=== PATIENT | male | born 1940 | race Caucasian/White ===

== ENCOUNTER 2016-12-23 15:05 | Emergency (ER) | payer MEDICARE, BC ==
[~2016-12-23] VITALS: Ht 170.2 cm; Wt 83.2 kg
[~2016-12-23 15:05] MED LIST: CALTTAB2 PO; CARB200 PO; CARV12.52 PO; CENTTAB9 PO; COZA50TA PO; HIGHTAB3 PO; ISOS5 PO; OMEP20CA5 PO; PERC5TAB12 PO; ROSU40 PO
[2016-12-23 15:09] VITALS: BP 129/81; PULSE 92; RESP 20; TEMP 98; O2SAT 95
[2016-12-23] MEDS ORDERED: FOLI400T PO (15:47)
[2016-12-23] MEDS ORDERED: FERR200T PO (15:47)
[2016-12-23] MEDS ORDERED: TREX15TA PO (15:47)
[2016-12-23] MEDS ORDERED: ROSU1TAB10 PO (15:47)
[2016-12-23] MEDS ORDERED: OMEP20TA PO (15:47)
[2016-12-23] MEDS ORDERED: MULT-210 PO (15:47)
[2016-12-23] MEDS ORDERED: CARV6.252 PO (15:47)
[2016-12-23] MEDS ORDERED: CALC1TAB42 PO (15:47)
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
== END 2016-12-23 17:18 | disposition home or self-care (01) ==
LOC: PHEFT 15:05
DX: S16.1XXA Strain of muscle, fascia and tendon at neck level, initial encounter (principal); S09.90XA Unspecified injury of head, initial encounter; S50.12XA Contusion of left forearm, initial encounter; M79.662 Pain in left lower leg; I10 Essential (primary) hypertension; V28.0XXA Motorcycle driver injured in noncollision transport accident in nontraffic accident, initial encounter; Y92.488 Other paved roadways as the place of occurrence of the external cause; Y93.89 Activity, other specified
CPT/HCPCS: 70450; 72125; 73090; 73590; 99284; L0150

== ENCOUNTER → 2017-04-05 | Outpatient (CLI) | payer MEDICARE, BC ==
[~2017-04-05] MED LIST changes: +CALC1TAB42 PO; -CALTTAB2 PO; -CARB200 PO; -CARV12.52 PO; +CARV6.252 PO; -CENTTAB9 PO; -COZA50TA PO; +FERR200T PO; +FOLI400T PO; -HIGHTAB3 PO; -ISOS5 PO; +MULT-210 PO; -OMEP20CA5 PO; +OMEP20TA PO; -PERC5TAB12 PO; +ROSU1TAB10 PO; -ROSU40 PO; +TREX15TA PO
--- NOTE | 2017-04-11 10:43 | RSPPFT ---
DATE OF PROCEDURE: 04/05/17 COMMENTS: Spirometry shows FVC of 3.3 at 107% of predicted, FEV1 of 2.3 at 96%, FEV1/FVC ratio is normal. Flow is decreased at FEF 25, FEF 50, FEF 75 and FEF 25-75. There is no response after bronchodilator treatment. Lung volumes show residual volume is normal. TLC is normal. Diffusion capacity is mildly decreased. Flow volume loops indicate terminal airways obstruction. IMPRESSION: 1. Mild small airways obstructive lung disease. 2. No response after bronchodilator treatment. 3. Normal lung volumes. 4. Mild decrease in diffusion capacity.
== END ==
LOC: PHRSP 10:45
PROVIDERS: ATTEND Specialist
DX: R06.00 Dyspnea, unspecified (principal)
CPT/HCPCS: 94060; 94726; 94729

== ENCOUNTER 2017-09-25 11:11 | Emergency (ER) | payer MEDICARE, BC ==
[~2017-09-25] VITALS: Ht 167.6 cm; Wt 85.0 kg
[~2017-09-25 11:11] MED LIST changes: -OMEP20TA PO; +OMEP20TA93 PO
[2017-09-25 11:14] VITALS: BP 186/84; PULSE 104; RESP 18; TEMP 98.9; O2SAT 95
[2017-09-25] MEDS ORDERED: LEVO25TA4 PO (11:26)
[2017-09-25] MEDS ORDERED: guaiFENesin/CODEINE SYRUP 200 MG/20 MG/10 ML CUP PO ONE (11:45)
[2017-09-25] MEDS: RESP: ALBUTEROL 2.5 MG/IPRATROPIUM 0.5 MG NEB (SCH) INH (11:46)
--- NOTE | 2017-09-25 11:48 | PD ---
HPI Chief Complaint: Cold / Flu Symptoms Time Seen by Provider: 11:28 Travel History International Travel<30 days: No Contact w/Intl Traveler<30days: No Traveled to known affect area: No History of Present Illness HPI 77yo F with PMH of CAD s/p CABG, RA, presents to the ED with c/o cough and nasal congestion for 4 days. Said he has no fever but lots of sweating. Also has some sob. Denies any chest pain, n/v, abdominal pain, focal weakness or numbness. 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 He was given albuterol pump which did seem to help. As per our record, he had pulmonary function test 04/2017 that showed mild small airway obstructive lung disease. PFSH Past Medical History Arthritis: Yes (ra) Autoimmune Disease: Yes (RA) Cardiac Catheterization: Yes (3 weeks) Cardiovascular Problems: Yes ([place]) High Cholesterol: Yes Chest Pain: Yes COPD: Yes Coronary Artery Disease: Yes Diminished Hearing: No GERD: Yes Gout: Yes Genitourinary: No Hypertension: Yes Neurologic: No Respiratory: Yes (hx pneumonia x 3) Immunizations Current: Yes Myocardial Infarction: Yes (2008) Tetanus Vaccination: < 5 Years Influenza Vaccination: Yes Past Surgical History Abdominal Surgery: Yes Appendectomy: Yes Cardiac Surgery: No Coronary Stent: Yes (x1 stent) Ear Surgery: No Endocrine Surgery: No Eye Surgery: No Genitourinary Surgery: No Gynecologic Surgery: No Joint Replacement: Yes (right hip) Neurologic Surgery: No Oral Surgery: No Thoracic Surgery: No Other Surgery: Yes (lamiectomy L4-L5, right wrist, left foot buionectomy) Social History Alcohol Use: Yes (OCC) Tobacco Use: No (QUIT) Substance Use: No Allergies-Medications (Allergen,Severity, Reaction): Coded Allergies: No Known Allergies (Verified Adverse Reaction, Unknown, 09/25/17) Reported Meds & Prescriptions Reported Meds & Active Scripts Active Codeine Sulfate 15 Mg Tab 15 Mg PO Q6H PRN 5 Days Prednisone 20 Mg Tab 40 Mg PO DAILY 5 Days Take 40 mg (2 tablets) daily for 5 days Reported Levothyroxine (Levothyroxine Sodium) 25 Mcg Tab 25 Mcg PO DAILY Trexall (Methotrexate) 15 Mg Tab 25 Mg PO Q7D Calcium 500+D (Calcium Carbonate-Cholecalciferol) 500-200 Mg-Unit Tab 1 Tab PO DAILY Therapeutic M (Multivit with Calcium,Iron,Min) 1 Each Tablet 1 Tab PO DAILY Rosuvastatin (Rosuvastatin Calcium) 40 Mg Tab 40 Mg PO DAILY Omeprazole 20 Mg Tab 20 Mg PO DAILY Folic Acid 400 Mcg Tab 300 Mcg PO DAILY Feosol (Ferrous Sulfate) 200 Mg Tab 200 Mg PO BIDPC Carvedilol 6.25 Mg Tab 6.25 Mg PO BID Review of Systems Except as stated in HPI: all other systems reviewed are Neg Physical Exam Narrative GENERAL: 77yo M in mild distress. SKIN: Focused skin assessment warm/dry. HEAD: Atraumatic. Normocephalic. EYES: Pupils equal and round. No scleral icterus. No injection or drainage. ENT: No nasal bleeding or discharge. Mucous membranes pink and moist. NECK: Trachea midline. No JVD. CARDIOVASCULAR: Regular rate and rhythm. No murmur appreciated. RESPIRATORY: No accessory muscle use. Clear to auscultation. Breath sounds equal bilaterally. GASTROINTESTINAL: Abdomen soft, non-tender, nondistended. MUSCULOSKELETAL: No obvious deformities. No clubbing. No cyanosis. No edema. NEUROLOGICAL: Awake and alert. No obvious cranial nerve deficits. Motor grossly within normal limits. Normal speech. PSYCHIATRIC: Appropriate mood and affect; insight and judgment normal. Data Data Last Documented VS Vital Signs Date Time Temp Pulse Resp B/P (MAP) Pulse Ox O2 Delivery O2 Flow Rate FiO2 09/25/17 13:36 09/25/17 13:03 98 18 95 Room Air 09/25/17 11:14 98.9 Orders Orders Electrocardiogram (09/25/17 ) Complete Blood Count With Diff (09/25/17 11:35) Basic Metabolic Panel (Bmp) (09/25/17 11:35) Troponin I (09/25/17 11:35) Influenzae A/B Antigen (09/25/17 11:35) Chest, Pa & Lat (09/25/17 ) Guaifen-Cod 200-20 Mg/10ml Liq (Robituss (09/25/17 11:45) Albuterol-Ipratropium Neb (Duoneb Neb) (09/25/17 11:45) Prednisone (Deltasone) (09/25/17 13:15) Ed Discharge Order (09/25/17 13:08) Labs Laboratory Tests Test 3/25/18 12:00 White Blood Count 12.0 TH/MM3 Red Blood Count 3.86 MIL/MM3 Hemoglobin 13.0 GM/DL Hematocrit 39.1 % Mean Corpuscular Volume 101.3 FL Mean Corpuscular Hemoglobin 33.7 PG Mean Corpuscular Hemoglobin Concent 33.3 % Red Cell Distribution Width 14.7 % Platelet Count 303 TH/MM3 Mean Platelet Volume 6.9 FL Neutrophils (%) (Auto) 82.7 % Lymphocytes (%) (Auto) 4.6 % Monocytes (%) (Auto) 8.4 % Eosinophils (%) (Auto) 1.6 % Basophils (%) (Auto) 2.7 % Neutrophils # (Auto) 9.9 TH/MM3 Lymphocytes # (Auto) 0.6 TH/MM3 Monocytes # (Auto) 1.0 TH/MM3 Eosinophils # (Auto) 0.2 TH/MM3 Basophils # (Auto) 0.3 TH/MM3 CBC Comment AUTO DIFF Differential Comment AUTO DIFF CONFIRMED Blood Urea Nitrogen 22 MG/DL Creatinine 1.10 MG/DL Random Glucose 86 MG/DL Calcium Level 8.2 MG/DL Sodium Level 139 MEQ/L Potassium Level 4.0 MEQ/L Chloride Level 105 MEQ/L Carbon Dioxide Level 25.0 MEQ/L Anion Gap 9 MEQ/L Estimat Glomerular Filtration Rate 65 ML/MIN Troponin I LESS THAN 0.02 NG/ML MDM Medical Decision Making Medical Screen Exam Complete: Yes Emergency Medical Condition: Yes Interpretation(s) EKG: NSR 95bpm. LAD. RBBB. Differential Diagnosis Bronchitis vs. pneumonia vs. influenza vs. ACS Narrative Course 77yo M with cold like symptoms. Pt has significant cardiac history and has some sob and diaphoresis so will do EKG and cardiac enzyme. Pt has no chest pain. Also has positive reaction to albuterol so will try some nebulizer treatment as well as robitussin with codeine. Labs reviewed, mild leukocytosis at 12,000. Pt said he is on medrol dose heide and does not know what dose he takes. Troponin negative. BUN mildly elevated at 22. Influenza negative. CXR showed no acute disease. HR is now 98bpm. Pt given robitussin and duonebs. Reevaluatd at bedside and said he feels better. Pt is not sob but just wants me to get rid of his cough. He is well appearing and saturating at 95% on RA. Return precautions given. Pt already have a new albuterol pump. Diagnosis Primary Impression: Bronchitis Patient Instructions: General Instructions Departure Forms: Tests/Procedures Additional Instructions: Please follow up with your primary care physician in 2-3 days. Please stop taking your medrol dose heide for now and take the prednisone for 5 days. Return to the ED if symptoms worsen. Med/Other Pt SpecificInfo: Prescription(s) given Scripts Guaifenesin-Codeine Liq (Guaifenesin-Codeine Liq) 100-10 Mg/5 Ml Soln 10 ML PO Q6H Y for COUGH for 5 Days, #1 BOTTLE 0 Refills Prov: Tila Avelar DO 09/25/17 Prednisone (Prednisone) 20 Mg Tab 40 MG PO DAILY for 5 Days, #10 TAB 0 Refills Take 40 mg (2 tablets) daily for 5 days Prov: Tila Avelar DO 09/25/17 Disposition: 01 DISCHARGE HOME Condition: Stable Tila Avelar DO Sep 25, 2017 11:48
[2017-09-25 12:04] LABS: AUTOMATED NEUTROPHIL # 9.9 TH/MM3 (1.8-7.7); BASOPHIL # 0.3 TH/MM3 (0-0.2); BASOPHIL % 2.7 % (0.0-2.0); EOSINOPHIL # 0.2 TH/MM3 (0-0.4); EOSINOPHIL % 1.6 % (0.0-4.0); HEMATOCRIT 39.1 % (39.0-51.0); LYMPH % 4.6 % (9.0-44.0); LYMPHOCYTE # 0.6 TH/MM3 (1.0-4.8); MEAN CELL VOLUME 101.3 FL (80.0-100.0); MEAN CORPUSCULAR HEMOGLOBIN 33.7 PG (27.0-34.0); MEAN CORPUSCULAR HGB CONC 33.3 % (32.0-36.0); MEAN PLATELET VOLUME 6.9 FL (7.0-11.0); MONO % 8.4 % (0.0-8.0); NEUT % 82.7 % (16.0-70.0); PLATELET COUNT 303 TH/MM3 (150-450); RED BLOOD COUNT 3.86 MIL/MM3 (4.50-5.90); RED CELL DISTRIBUTION WIDTH 14.7 % (11.6-17.2)
[2017-09-25 12:17] LABS: CHLORIDE 105 MEQ/L (98-107); SODIUM (NA) 139 MEQ/L (136-145)
[2017-09-25 12:19] LABS: CALCIUM 8.2 MG/DL (8.5-10.1)
[2017-09-25 12:20] LABS: BLOOD UREA NITROGEN 22 MG/DL (7-18); GLUCOSE,RANDOM 86 MG/DL (74-106)
[2017-09-25 12:23] LABS: GLOMERULAR FILTRATION RATE 65 ML/MIN (>89)
[2017-09-25 12:28] LABS: TROPONIN I LESS THAN 0.02 NG/ML (0.02-0.05)
--- NOTE | 2017-09-25 12:47 | RADRPT ---
EXAM DATE/TIME: 09/25/2017 12:17 [facility] COMPARISON: CHEST PA & LAT, March 26, 2015, 11:43. INDICATIONS : Cough. Congestion. MEDICAL HISTORY : Cardiovascular disease. SURGICAL HISTORY : CABG. Craniotomy. ENCOUNTER: Initial ACUITY: 3 days PAIN SCORE: 5/10 LOCATION: Bilateral chest FINDINGS: PA and lateral views of the chest demonstrate the lungs to be symmetrically aerated without evidence of mass, infiltrate or effusion. The cardiomediastinal contours are unremarkable. Medium sternotomy wires are noted status post cardiac surgery. Osseous structures are intact. CONCLUSION: No acute disease. Roman Miranda MD on September 25, 2017 at 12:44 Board Certified Radiologist. This report was verified electronically.
[2017-09-25 13:03] VITALS: BP 136/76; PULSE 98; RESP 18; O2SAT 95
[2017-09-25] MEDS ORDERED: PRED20 PO (13:05)
[2017-09-25] MEDS ORDERED: CODE15 PO (13:05)
[2017-09-25] MEDS ORDERED: predniSONE 50 MG TAB PO ONE (13:15)
[2017-09-25] MEDS ORDERED: GUAI100S5 PO (15:52)
--- NOTE | 2017-09-27 00:33 | EKG ---
Date Performed: 09/25/2017 Time Performed: 11:42:20 PTAGE: 77 years EKG: Sinus rhythm RIGHT BUNDLE BRANCH BLOCK INFERIOR MYOCARDIAL INFARCTION ABNORMAL ECG PREVIOUS TRACING : 03/26/2015 12.31 DOCTOR: Riley Wilkerson Interpretating Date/Time 09/27/2017 00:19:27
== END 2017-09-25 13:37 | disposition home or self-care (01) ==
LOC: PHEFT 11:11
DX: J40 Bronchitis, not specified as acute or chronic (principal); D72.829 Elevated white blood cell count, unspecified; I45.10 Unspecified right bundle-branch block; I25.2 Old myocardial infarction; R94.31 Abnormal electrocardiogram [ECG] [EKG]; M06.9 Rheumatoid arthritis, unspecified; I25.10 Atherosclerotic heart disease of native coronary artery without angina pectoris; M10.9 Gout, unspecified; I10 Essential (primary) hypertension
CPT/HCPCS: 71046; 80048; 84484; 85025; 87804; 93005; 94640; 94664; 99285; J7512

== ENCOUNTER 2018-02-09 05:30 | Observation (INO) ==
[2018-02-09] MEDS ORDERED: Metoprolol Tartrate 25 MG Tablet PO SCH (05:45)
[2018-02-09] MEDS ORDERED: Chlorhexidine Gluconate 2% 1 Pack (2 Cloths) TOPICAL SCH (05:45)
[2018-02-09] MEDS ORDERED: Sodium Chlor 0.9% Inj 500 ML IV.SIG SCH (06:00)
[2018-02-09] MEDS ORDERED: ceFAZolin 2 GM Premix Inj 2 GM/50 ML PIGGYBACK IV.SIG SCH (06:00)
[2018-02-09] MEDS ORDERED: Vancomycin Inj 1 GM/200 ML PIGGYBACK IV.SIG SCH (06:00)
[2018-02-09] MEDS ORDERED: Chlorhexidine 4% Topical 120 APPLIC/120 ML Bottle TOPICAL SCH (06:00)
[2018-02-09] MEDS ORDERED: Ketamine Inj 50 MG/5 ML Syringe IV.PUSH ONE (07:44)
[2018-02-09] MEDS ORDERED: Propofol Inj 500 MG/50 ML Vial ONE ×2 (07:44→10:26)
[2018-02-09] MEDS ORDERED: Dexmedetomidine Inj 200 MCG/2 ML Vial ONE (08:07)
[2018-02-09] MEDS ORDERED: Ketamine Inj 500 MG/10 ML Vial ONE (08:21)
[2018-02-09] MEDS: Bupivacaine/Epinephrine 0.5% Inj 50 ML Vial ONE (10:50)
[2018-02-09] MEDS ORDERED: Lidocaine PF 1% Inj 5 ML Syringe INFILTRATN ONE (12:00)
[2018-02-09] MEDS ORDERED: Phenylephrine/NS 1000 MCG/10ML Syringe IV.PUSH ONE (12:00)
[2018-02-09] MEDS ORDERED: Succinylcholine Inj 100 MG/5 ML Syringe IV.PUSH ONE (12:00)
[2018-02-09] MEDS ORDERED: Sodium Chlor 0.9% Inj 250 ML IV.SIG ONE (12:00)
[2018-02-09] MEDS ORDERED: Zolpidem Tartrate 5 MG Tablet PO PRN (15:00)
[2018-02-09] MEDS ORDERED: Post-op Orders (for Pharmacy) OTHER STA (15:00)
[2018-02-09] MEDS ORDERED: Bisacodyl 10 MG Supp RECTAL PRN (15:00)
[2018-02-09] MEDS ORDERED: Morphine Inj 4 MG/ML Vial IV.PUSH PRN (15:00)
--- NOTE | 2018-02-09 15:30 | MP ---
cc: John Valdovinos MD,Annette Echeverria,Arnold Zhao MD DATE OF OPERATION: 02/09/2018 DATE OF PROCEDURE: 02/09/2018 PREOPERATIVE DIAGNOSES: 1. C3-4 osteophyte disk complex. 2. C4-5 osteophyte disk complex, spondylolisthesis, spinal instability, moderate spinal stenosis, spinal cord compression. 3. C5-C6, moderate left-sided, herniated nucleus pulposus, osteophyte disk complex, moderately severe spinal stenosis, spinal cord compression. 4. Cervical spine degenerative osteoarthritis. 5. History of rheumatoid arthritis. 6. Cervical myelopathy, bilateral cervical radiculitis with bilateral upper extremity weakness. POSTOPERATIVE DIAGNOSES: 1. C3-4 osteophyte disk complex. 2. C4-5 osteophyte disk complex, spondylolisthesis, spinal instability, moderate spinal stenosis, spinal cord compression. 3. C5-C6, moderate left-sided, herniated nucleus pulposus, osteophyte disk complex, moderately severe spinal stenosis, spinal cord compression. 4. Cervical spine degenerative osteoarthritis. 5. History of rheumatoid arthritis. 6. Cervical myelopathy, bilateral cervical radiculitis with bilateral upper extremity weakness. PROCEDURE PERFORMED: C3-C4, C4-C5, C5-6 anterior interbody fusion; C3-4, C4-5, C5-C6 Spinet anterior cervical cage; C3-C6 Biomet Rauscher anterior spinal instrumentation. SURGEON: Ella Valdovinos MD IMPLEMENTATION CONSULTANT: Susana Britt PA-C. ESTIMATED BLOOD LOSS: 1000 mL for the entire case. DRAINS: One. SPECIMENS: None. COMPLICATIONS: None. PLAN OF ACTIVITY: As per orders. PROCEDURE: Dr. Duarte Valdovinos and myself were the co-surgeons. Dr. Duarte Valdovinos performed the decompression portion of the procedure. He performed a C3-4, C4-5 and C5-6 anterior cervical diskectomy, anterior decompression foraminotomies using operative microscope. He also performed a right anterior iliac crest bone grafting. I was not present for his portion of the procedure. My plastic surgery assistant Susana Britt PA-C, was present for my portion of the surgical case. She was medically necessary for the entire case because of the complexity of case and to facilitate the performance of the procedure. The METAPHYSICIST at the back table was not of the skill set for this case to manipulate the instruments, e.g. multiple different soft tractors, trial implants and the permanent implants. The endplates at C5-C6 were prepared for fusion. The patient was found to have significant generalized oozing from the foramen and also from the soft tissues throughout the entire surgical procedure. The endplates were removed using angled curets and burs. A 6, 10 x 12 ACC cage was placed in the space in satisfactory manner. Anterior iliac crest bone grafting was used under fluoroscopic guidance for interbody fusion. The endplates at C4-C5 were prepared for fusion, hyaline cartilage endplates removed using angled curettes and burs. A 6, 10 x 12 ACC cage was placed in this space. Anterior iliac crest bone graft was used under fluoroscopic guidance for interbody fusion. The C3-4 hyaline cartilage endplate were removed using angled curettes and burs. A 6, 10 x 12 ACC cage was placed in the interspace in satisfactory manner: Fluoroscopic guidance was used for anterior iliac crest interbody fusion. Long anterior osteophytes were removed using burs and rongeurs. A mm 63 mm length plate was used for anterior spinal instrumentation. Two small tack screws were used to maintain the plate in satisfactory position. This was checked under fluoroscopy, AP and lateral plane, which was found to be in satisfactory position. Two screws were used in the vertebral body of C3, C4, C5, and C6. Each of the screws were 14 mm length screws, 4.0 mm and outer diameter screws fixed angle screws. Each screw head was appropriately locked to the plate. The wound was irrigated with copious amounts of sterile saline antibiotic solution. Surgiflo was used for hemostasis. The wound was irrigated with copious amounts of sterile antibiotic solution. The wound itself were dry. The wound was closed in a routine layers. It was closed over a 10-[place] drain in multiple layers using 3-0 Vicryl and the skin was approximate with running subcuticular 4-0 Vicryl and sterile dressing apply. Dermabond was placed over the skin incisions. The patient was placed supine, placed in cervical collar. The patient tolerated the procedure well and left the operating room in stable and satisfactory condition. MD CHUCKY Augustin/JUAN , 02:54 PM , 03:09 PM
[2018-02-09 15:33] LABS: Hematocrit 31.8 % (39.0-51.0); Mean Corpuscular HGB Conc 34.7 % (32.0-36.0); Mean Corpuscular Hemoglobin 34.3 pg (27.0-34.0); Mean Corpuscular Volume 98.8 fL (80.0-100.0); Mean Platelet Volume 7.2 fL (7.0-11.0); Platelet Count 197 th/mm3 (150-450); Red Blood Count 3.22 mil/mm3 (4.50-5.90); Red Cell Distribution Width 13.1 % (11.6-17.2); White Blood Count 7.7 th/mm3 (4.0-11.0)
--- NOTE | 2018-02-09 15:48 | XR ---
EXAM DATE: 02/09/2018 3:35 PM EDT AGE/SEX: 77 years / Male INDICATIONS: C3-4, C4-5, C5-6 ACDF. CLINICAL DATA: This is the patient's initial encounter. Patient reports that signs and symptoms have been present for 1 day and indicates a pain score of Nonresponsive. MEDICAL/SURGICAL HISTORY: . Cardiovascular disease. CABG. Craniotomy. COMPARISON: No prior exams available for comparison. FINDINGS: Anterior and lateral views obtained in the operating room shows findings of cervical discectomy and f usion procedure with anterior and interbody instrumentation from C3 to C6. Alignment is within normal limits. No acute complication demonstrated. CONCLUSION: Expected intraoperative radiographic appearance of C3-C6 discectomy and fusion procedure as above. Electronically signed by: Leonides Charles MD 02/09/2018 3:47 PM EDT
[2018-02-09 15:54] LABS: Calcium 7.6 mg/dL (8.5-10.1); Carbon Dioxide 25.6 meq/L (21.0-32.0); Potassium 4.2 meq/L (3.5-5.1)
--- NOTE | 2018-02-09 17:55 | P.CON ---
History of Present Illness Consult date: 02/09/18 Requesting Physician: John Valdovinos Reason for Consult: Medical evaluation Primary Care Provider: UNKNOWN Family Provider: Physician [facility] Chief Complaint: Patient admitted for elective neck surgery History of Present Illness: Patient is a very pleasant 74-year-old male with multiple medical problems namely hypertension, rheumatoid arthritis, GERD, hyperlipidemia who has been complaining of bilateral paresthesias for the past few months worsening over time. Patient underwent workup with cervical disc disease. Patient was admitted today electively and underwent ACDF of the neck C3-C4, C4-C5, C5-C6 with DAMI drain. Patient has an estimated blood loss of 1 L. Hemoglobin was 11. Postop blood pressure. Patient received 3 L fluid resuscitation and was started transiently vasopressors Lamberto-Synephrine Synephrine. Patient currently on maintenance IV fluids of 80 cc an hour LR. [facility]ist consulted for medical evaluation. Patient currently seen in PACU. Awake alert oriented 3. Arterial line in place with blood pressures 100-110/75 heart rate regular. Review of Systems Patient states that he is up ambulatory independently Denies any paroxysmal nocturnal dyspnea or orthopnea. Occasional reflux symptoms Denies any melena or hematochezia Denies any urinary symptoms No leg swelling. Positive history of joint pains related to rheumatoid arthritis. Per patient well-controlled -Patient just completed Medrol Dosepak for rheumatoid flare about 2 weeks ago. [facility] - History History Provided By: Patient - Medical History Medical History: Medical History (Last Updated 01/31/18 @ 10:50 by Suzanne Ramirez RN) Anemia Back pain Head injury High cholesterol Hx deployment Hypertension Hypothyroidism Neck pain Numbness and tingling in both hands Rheumatoid arthritis Spinal stenosis in cervical region - Surgical History Surgical History: Surgical History (Last Updated 01/31/18 @ 10:44 by Suzanne Ramirez RN) History of aortic valve replacement History of appendectomy History of brain surgery History of coronary artery bypass graft History of lumbar laminectomy History of repair of rotator cuff History of total right hip arthroplasty Status post left foot surgery - Tobacco History Second Hand Smoke Exposure: No Tobacco Use In Past 30 Days: No Smoking Status: Former smoker Tobacco Type: Cigarettes - Alcohol History How Often Do You Have a Drink Containing Alcohol: Never - Substance Use History Substance History: No History of Abuse - Travel History Recent Travel in the [facility] Within the Last 8 Weeks: No Recent Travel Out of the Country Within the Last 8 Weeks: No Medications and Allergies Active Medications: Active Medications Hydrocodone Bitart/Acetaminophen ([place] 7.5/325) 1 tab PO Q4H PRN PRN Reason: PAIN LESS THAN 5 ON SCALE Hydrocodone Bitart/Acetaminophen ([place] 7.5/325) 2 tab PO Q6H PRN PRN Reason: PAIN SCALE 5 TO 10 Al Hydroxide/Mg Hydroxide (Milk Of Magnesia Liq) 30 ml PO BID PRN PRN Reason: Mild Constipation Aspirin (Ecotrin) 81 mg PO DAILY [facility] Bisacodyl (Dulcolax Supp) 10 mg RECTAL DAILY PRN PRN Reason: SEVERE CONSITIPATION Carvedilol (Coreg) 6.25 mg PO BID [facility] Chlorhexidine Gluconate (Chlorhexidine 2% Cloth) 3 pack TOPICAL WHEEL PRESSER [facility] Stop: 02/12/18 05:46 Last Admin: 02/09/18 05:45 Dose: 3 pack Chlorhexidine Gluconate (Hibiclens 4% Topical) 1 applicatio TOPICAL ONCE [facility] Stop: 02/13/18 05:59 Ferrous Sulfate (Ferosul) 325 mg PO BID [facility] Lactated Ringer's (Lr 1000 Ml Inj) 1,000 mls @ 30 mls/hr IV.SIG .Q24H [facility] Stop: 02/12/18 05:46 Last Infusion: 02/09/18 15:53 Dose: 30 mls/hr Sodium Chloride (Ns Inj) 500 mls @ 30 mls/hr IV.SIG .Q10H [facility] Stop: 02/12/18 05:46 Cefazolin Sodium/Dextrose (Ancef 2 Gm Premix Inj) 2 gm in 50 mls @ 100 mls/hr IV.SIG WHEEL PRESSER [facility] Stop: 02/13/18 05:59 Last Infusion: 02/09/18 12:00 Dose: Infused Vancomycin/Sodium Chloride (Vancomycin Inj) 1 gm in 200 mls @ 200 mls/hr IV.SIG WHEEL PRESSER [facility] Stop: 02/13/18 05:59 Last Infusion: 02/09/18 12:00 Dose: Infused Cefazolin Sodium 1,000 mg/ (Sodium Chloride) 100 mls @ 200 mls/hr IV.SIG Q6H [facility] Stop: 02/10/18 08:29 Lactulose (Lactulose Liq) 30 ml PO DAILY PRN PRN Reason: SEVERE CONSITIPATION Levothyroxine Sodium (Synthroid) 25 mcg PO DAILY@0600 [facility] Metoprolol Tartrate (Lopressor) 25 mg PO WHEEL PRESSER [facility] Stop: 02/12/18 05:46 Last Admin: 02/09/18 07:18 Dose: Not Given Morphine Sulfate (Morphine Inj) 2 mg IV.PUSH Q3H PRN PRN Reason: BREAKTHROUGH PAIN Non-Formulary Medication (Calcium Carbonate-Vitamin D3 [Calcium 600 + D(3)]) 1 tab PO DAILY [facility] Non-Formulary Medication (Etanercept [Enbrel]) 25 mg SQ WEEKLY [facility] Non-Formulary Medication (Isdowtlyqagm-Yxy-Ygsj-Fa-Vit K [Adults Multivitamin]) 1 tab PO DAILY [facility] Non-Formulary Medication (Omeprazole [Omeprazole]) 20 mg PO BID [facility] Non-Formulary Medication (Rosuvastatin [Rosuvastatin]) 40 mg PO HS [facility] Ondansetron HCl (Zofran Odt) 4 mg PO Q6H PRN PRN Reason: NAUSEA OR VOMITING Povidone Iodine (Betadine 5% Antisepsis Kit) 1 applicatio EACH NARE WHEEL PRESSER [facility] Stop: 02/12/18 05:46 Last Admin: 02/09/18 07:16 Dose: 1 applicatio Senna/Docusate Sodium (Jane-Colace) 1 tab PO BID [facility] Sennosides (Senokot) 17.2 mg PO BID PRN PRN Reason: Moderate Constipation Sodium Chloride (Ns Flush) 2 ml IV.FLUSH BID [facility] Sodium Chloride (Ns Flush) 2 ml IV.FLUSH PRN PRN PRN Reason: FLUSH AFTER USING IV ACCESS Zolpidem Tartrate (Ambien) 5 mg PO HS PRN PRN Reason: INSOMNIA Allergies Allergy/AdvReac Type Severity Reaction Status Date / Time No Known Allergies Allergy Verified 01/31/18 10:09 Home Medications Medication Instructions Recorded Confirmed Type aspirin [Aspirin Low Dose] 81 mg PO DAILY 01/31/18 02/09/18 History calcium carbonate-vitamin D3 1 tab PO DAILY 01/31/18 02/09/18 History [Calcium 600 + D(3)] carvedilol 6.25 mg PO BID 01/31/18 02/09/18 History ferrous sulfate 325 mg PO BID 01/31/18 02/09/18 History levothyroxine 25 mcg PO DAILY 01/31/18 02/09/18 History hncwzgsxxjaj-apl-kzji-FA-vit K 1 tab PO DAILY 01/31/18 02/09/18 History [Adults Multivitamin] omeprazole 20 mg PO BID 01/31/18 02/09/18 History rosuvastatin 40 mg PO HS 01/31/18 02/09/18 History etanercept [Enbrel] 25 mg SUB-Q WEEKLY 02/09/18 02/09/18 History Physical Exam Vital signs: Vital Signs 02/09/18 06:51 02/09/18 15:11 02/09/18 15:12 Temperature 98.3 F 97.6 F Pulse Rate 91 H 68 69 Respiratory Rate 20 12 12 Blood Pressure 121/74 80/44 L 79/47 L Pulse Oximetry 95 98 98 02/09/18 15:15 02/09/18 15:17 02/09/18 15:20 Temperature Pulse Rate 67 66 66 Respiratory Rate 12 12 14 Blood Pressure 76/42 L 81/48 L 131/64 Pulse Oximetry 98 98 100 02/09/18 15:25 02/09/18 15:30 02/09/18 15:45 Temperature Pulse Rate 65 65 65 Respiratory Rate 14 15 15 Blood Pressure 133/57 L 120/53 L 100/42 L Pulse Oximetry 100 100 99 02/09/18 16:00 02/09/18 16:15 02/09/18 16:30 Temperature Pulse Rate 65 65 65 Respiratory Rate 15 15 14 Blood Pressure 103/45 L 104/52 L 93/50 L Pulse Oximetry 99 99 99 02/09/18 16:45 02/09/18 17:00 02/09/18 17:15 Temperature Pulse Rate 65 71 72 Respiratory Rate 14 15 15 Blood Pressure 106/45 L 90/52 L 106/59 L Pulse Oximetry 99 100 100 Intake & Output 02/08/18 02/09/18 02/09/18 18:59 06:59 18:59 Intake Total 3250 / 3250 Output Total 1400 / 1400 Balance 1850 / 1850 Weight 82.8 kg Intake: IV 750 / 750 LR 1000 mL Inj 1,000 ML @ 30 500 / 500 mls/hr IV.SIG .Q24H [facility] Rx#: [id number] Vancomycin Inj 1 gm In 200 ml @ 200 / 200 200 mls/hr IV.SIG WHEEL PRESSER [facility] Rx#:[id number] Ancef 2 GM Premix Inj 2 gm In 50 / 50 50 ml @ 100 mls/hr IV.SIG WHEEL PRESSER ERIC Rx#:[id number] Anesthesia Amount 2500 / 2500 Output: Estimated Blood Loss 1000 / 1000 Urine Amount (Catheter) 400 / 400 Indwelling Urethral Catheter 400 / 400 Other: Weight On Admission 82.8 kg Narrative: Blood pressure 100/75 heart rate of 86 98% sats on 2 L Awake alert oriented 3 not in any form of acute distress Anicteric sclerae pink palpebral conjunctiva neck with cervical collar in place with drain in place Chest lungs bilateral breath sounds equal no rales Regular rhythm no murmur Abdomen is soft with good bowel sounds Montero catheter in place Extremities no clubbing no cyanosis no edema Neurologic exam awake alert oriented 3 cranial nerves grossly intact motor moves all extremities equally Grossly no sensory deficit - Urinary Catheter Management Indwelling Urethral Catheter Cath placed during this visit: yes Reason for continuing: Hourly intake/output Insertion date: 02/09/18 Assessment and Plan - Plan 77-year-old male Cervical disc disease status post ACDF cervical spines. Orthopedic service following. As needed pain meds PT consult in a.m. Transient hypotension most likely from postoperative blood loss. post op EBL- 1L Stat hemoglobin hematocrit was 11. Status post resuscitation with 3 L. Transiently was on small doses of vasopressors now off for about 2 hours. Continue on maintenance IV fluids of NS 70 cc an hour History of hypertension, CAD status post CABG. hyperlipidemia Hold off on Coreg for today will restart in a.m. start home meds rosuvastatin. History of GERD. Continue on omeprazole 20 mg daily History of hypothyroidism. On Synthroid History of rheumatoid arthritis. Continue Imuran/Enbrel on discharge. As needed pain meds. Continue home meds in a.m. multivitamins, iron sulfate, Incentive spirometry hourly Thank you for this consult will follow patient in-house with you
[2018-02-09] MEDS ORDERED: Dextrose 5%/NaCl 0.9% Inj 1,000 ML IV.CONT SCH (18:30)
[2018-02-09] MEDS ORDERED: fentaNYL Citrate Inj 100 MCG/2 ML Ampul ONE (18:48)
[2018-02-09] MEDS: Ferrous Sulfate 325 MG Tablet PO SCH (20:37)
[2018-02-09] MEDS: Carvedilol 6.25 MG Tablet PO SCH (20:38)
[2018-02-09] MEDS: Pantoprazole Sodium 20 MG DR Tablet PO SCH (20:38)
[2018-02-09] MEDS: Senna/Docusate Sodium 8.6/50 MG Tablet PO SCH (20:38)
--- NOTE | 2018-02-10 06:59 | P.PNOP ---
Subjective Interval history: increased strength to bilateral upper extremities and hands, has decreased tingling to bilateral upper extremities and hands no complaints of dysphasia or dysphonia no hip pain Physical Exam Vital signs: Vital Signs 02/09/18 15:11 02/09/18 15:12 02/09/18 15:15 Temperature 97.6 F Pulse Rate 68 69 67 Respiratory Rate 12 12 12 Blood Pressure 80/44 L 79/47 L 76/42 L Pulse Oximetry 98 98 98 02/09/18 15:17 02/09/18 15:20 02/09/18 15:25 Temperature Pulse Rate 66 66 65 Respiratory Rate 12 14 14 Blood Pressure 81/48 L 131/64 133/57 L Pulse Oximetry 98 100 100 02/09/18 15:30 02/09/18 15:45 02/09/18 16:00 Temperature Pulse Rate 65 65 65 Respiratory Rate 15 15 15 Blood Pressure 120/53 L 100/42 L 103/45 L Pulse Oximetry 100 99 99 02/09/18 16:15 02/09/18 16:30 02/09/18 16:45 Temperature Pulse Rate 65 65 65 Respiratory Rate 15 14 14 Blood Pressure 104/52 L 93/50 L 106/45 L Pulse Oximetry 99 99 99 02/09/18 17:00 02/09/18 17:15 02/09/18 17:30 Temperature Pulse Rate 71 72 70 Respiratory Rate 15 15 19 Blood Pressure 90/52 L 106/59 L 106/62 Pulse Oximetry 100 100 100 02/09/18 17:45 02/09/18 18:35 02/09/18 20:00 Temperature 97.5 F L 97.3 F L Pulse Rate 74 73 74 Respiratory Rate 17 16 18 Blood Pressure 116/53 L 120/66 120/58 L Pulse Oximetry 100 98 97 02/09/18 23:41 02/10/18 02:43 02/10/18 04:00 Temperature 97.6 F 97.3 F L Pulse Rate 83 88 Respiratory Rate 18 18 17 Blood Pressure 125/67 155/77 H Pulse Oximetry 98 97 Intake & Output 02/09/18 02/09/18 02/10/18 06:59 18:59 06:59 Intake Total 3250 / 3250 200 / 200 Output Total 1835 / 1835 380 / 380 Balance 1415 / 1415 -180 / -180 Weight 82.8 kg 82.8 kg Intake: IV 750 / 750 200 / 200 LR 1000 mL Inj 1,000 ML @ 30 500 / 500 mls/hr IV.SIG .Q24H [facility] Rx#: [id number] Vancomycin Inj 1 gm In 200 ml @ 200 / 200 200 mls/hr IV.SIG DIRECT[facility] OF DISTRICT OFFICE [facility] Rx#:[id number] Ancef 2 GM Premix Inj 2 gm In 50 / 50 50 ml @ 100 mls/hr IV.SIG [facility] OF [facility] OFFICE [facility] Rx#:[id number] Ancef Inj 1,000 MG In NS Inj 200 / 200 100 ML @ 200 mls/hr IV.SIG Q6H [facility] Rx#:[id number] Anesthesia Amount 2500 / 2500 Output: Urine 325 / 325 Estimated Blood Loss 1000 / 1000 Urine Amount (Catheter) 800 / 800 Indwelling Urethral Catheter 800 / 800 Wound Drainage 55 / 55 # 1 Anterior Neck 55 Other: # Voids 1 Weight On Admission 82.8 kg Narrative: emmonak collar in place cervical dressing dry and in place motor is +5/5 hoffmans to upper extremity has resolved - Urinary Catheter Management Indwelling Urethral Catheter Cath placed during this visit: yes, but has since been removed by the nurse Reason for continuing: Decision to DC catheter Insertion date: 02/09/18 Removal date: 02/09/18 Removal time: 18:00 Results - Labs CBC & Chem 7: 02/09/18 15:19 02/09/18 15:19 Laboratory Results - last 24 hr 02/09/18 02/09/18 15:19 15:19 WBC 7.7 RBC 3.22 L Hgb 11.0 L Hct 31.8 L MCV 98.8 MCH 34.3 H MCHC 34.7 RDW 13.1 Plt Count 197 MPV 7.2 Sodium 143 Potassium 4.2 Chloride 109 H Carbon Dioxide 25.6 Anion Gap 8 BUN 13 Creatinine 0.99 Estimated GFR 74 L Random Glucose 147 H Calcium 7.6 L - Imaging Impressions Cervical Spine X-Ray 02/09/18 00:00 CONCLUSION: Expected intraoperative radiographic appearance of C3-C6 discectomy and fusion procedure as above. Assessment and Plan - Assessment and Plan POD #1 s/p C3-6 ACDF [place] collar x 8 weeks Tramadol rx in chart scheduled for posterior DTRAX fusion in 2 weeks discharge home, orthopedically stable
--- NOTE | 2018-02-10 08:45 | P.PN ---
Subjective Interval history: BP improved awake and alert already up - in chair denies any nause aor vomiting or dizziness paresthesisas better Physical Exam Vital signs: Vital Signs 02/09/18 15:11 02/09/18 15:12 02/09/18 15:15 Temperature 97.6 F Pulse Rate 68 69 67 Respiratory Rate 12 12 12 Blood Pressure 80/44 L 79/47 L 76/42 L Pulse Oximetry 98 98 98 02/09/18 15:17 02/09/18 15:20 02/09/18 15:25 Temperature Pulse Rate 66 66 65 Respiratory Rate 12 14 14 Blood Pressure 81/48 L 131/64 133/57 L Pulse Oximetry 98 100 100 02/09/18 15:30 02/09/18 15:45 02/09/18 16:00 Temperature Pulse Rate 65 65 65 Respiratory Rate 15 15 15 Blood Pressure 120/53 L 100/42 L 103/45 L Pulse Oximetry 100 99 99 02/09/18 16:15 02/09/18 16:30 02/09/18 16:45 Temperature Pulse Rate 65 65 65 Respiratory Rate 15 14 14 Blood Pressure 104/52 L 93/50 L 106/45 L Pulse Oximetry 99 99 99 02/09/18 17:00 02/09/18 17:15 02/09/18 17:30 Temperature Pulse Rate 71 72 70 Respiratory Rate 15 15 19 Blood Pressure 90/52 L 106/59 L 106/62 Pulse Oximetry 100 100 100 02/09/18 17:45 02/09/18 18:35 02/09/18 20:00 Temperature 97.5 F L 97.3 F L Pulse Rate 74 73 74 Respiratory Rate 17 16 18 Blood Pressure 116/53 L 120/66 120/58 L Pulse Oximetry 100 98 97 02/09/18 23:41 02/10/18 02:43 02/10/18 04:00 Temperature 97.6 F 97.3 F L Pulse Rate 83 88 Respiratory Rate 18 18 17 Blood Pressure 125/67 155/77 H Pulse Oximetry 98 97 Intake & Output 02/09/18 02/10/18 02/10/18 18:59 06:59 18:59 Intake Total 3250 / 3250 200 / 200 Output Total 1835 / 1835 380 / 380 Balance 1415 / 1415 -180 / -180 Weight 82.8 kg Intake: IV 750 / 750 200 / 200 LR 1000 mL Inj 1,000 ML @ 30 500 / 500 mls/hr IV.SIG .Q24H [facility] Rx#: [id number] Vancomycin Inj 1 gm In 200 ml @ 200 / 200 200 mls/hr IV.SIG DEBATE DIRECTOR [facility] Rx#:[id number] Ancef 2 GM Premix Inj 2 gm In 50 / 50 50 ml @ 100 mls/hr IV.SIG DEBATE DIRECTOR [facility] Rx#:[id number] Ancef Inj 1,000 MG In NS Inj 200 / 200 100 ML @ 200 mls/hr IV.SIG Q6H [facility] Rx#:[id number] Anesthesia Amount 2500 / 2500 Output: Urine 325 / 325 Estimated Blood Loss 1000 / 1000 Urine Amount (Catheter) 800 / 800 Indwelling Urethral Catheter 800 / 800 Wound Drainage 35 55 / 55 # 1 Anterior Neck 55 / 55 Other: # Voids 1 Narrative: Awake alert oriented 3 not in any form of acute distress Anicteric sclerae pink palpebral conjunctiva neck with cervical collar in place Chest lungs bilateral breath sounds equal no rales Regular rhythm no murmur Abdomen is soft with good bowel sounds Extremities no clubbing no cyanosis no edema Neurologic exam awake alert oriented 3 cranial nerves grossly intact motor moves all extremities equally Grossly no sensory deficit - Urinary Catheter Management Indwelling Urethral Catheter Cath placed during this visit: yes, but has since been removed by the nurse Reason for continuing: Hourly intake/output Insertion date: 02/09/18 Removal date: 02/09/18 Removal time: 18:00 Results - Labs CBC & Chem 7: 02/09/18 15:19 02/09/18 15:19 Laboratory Results - last 24 hr 02/09/18 02/09/18 15:19 15:19 WBC 7.7 RBC 3.22 L Hgb 11.0 L Hct 31.8 L MCV 98.8 MCH 34.3 H MCHC 34.7 RDW 13.1 Plt Count 197 MPV 7.2 Sodium 143 Potassium 4.2 Chloride 109 H Carbon Dioxide 25.6 Anion Gap 8 BUN 13 Creatinine 0.99 Estimated GFR 74 L Random Glucose 147 H Calcium 7.6 L - Imaging Impressions Cervical Spine X-Ray 02/09/18 00:00 CONCLUSION: Expected intraoperative radiographic appearance of C3-C6 discectomy and fusion procedure as above. Assessment and Plan - Plan 77-year-old male Cervical disc disease status post ACDF cervical spines. Orthopedic service following. As needed pain meds PT consult - per patient ambulates with a walker- has one at home Transient hypotension most likely from postoperative blood loss. - RESOLVed Stat hemoglobin hematocrit was 11. Status post resuscitation with 3 L. off pressors. DC IV History of hypertension, CAD status post CABG. hyperlipidemia restart Coreg on DC cotninue home meds rosuvastatin. History of GERD. Continue on omeprazole 20 mg daily History of hypothyroidism. On Synthroid History of rheumatoid arthritis. Continue Imuran/Enbrel on discharge. As needed pain meds. Continue home meds in a.m. multivitamins, iron sulfate, Incentive spirometry hourly DC home today OP ff up with PCP
[2018-02-10] MEDS ORDERED: Multivitamin Hematinic Therapeutic Tablet PO SCH (09:00)
[2018-02-10] MEDS ORDERED: Calcium/Vitamin D 250/125 MG Tablet PO SCH (09:00)
[2018-02-10] MEDS: Ferrous Sulfate 325 MG Tablet PO SCH (10:05)
[2018-02-10] MEDS: Pantoprazole Sodium 20 MG DR Tablet PO SCH (10:06)
[2018-02-10] MEDS: Senna/Docusate Sodium 8.6/50 MG Tablet PO SCH (10:06)
[2018-02-10] MEDS: Carvedilol 6.25 MG Tablet PO SCH (10:06)
[2018-02-10] MEDS: Bupivacaine/Epinephrine 0.5% Inj 50 ML Vial ONE (10:50)
[2018-02-10 13:56] VITALS: BP 158/73; PULSE 99; RESP 16; TEMP 97.5; O2SAT 94
== END 2018-02-10 14:59 | disposition home or self-care (01) ==
LOC: HSDI 05:30 → HSDC 05:30 → EDSTATUS 08:30 → N06 18:53
PROVIDERS: ADMIT Orthopaedic Surgery Orthopaedic Surgery of the Spine; ATTEND Orthopaedic Surgery Orthopaedic Surgery of the Spine

== ENCOUNTER 2018-03-02 05:19 | Inpatient (IN) ==
[2018-03-02] MEDS ORDERED: Chlorhexidine 4% Topical 120 APPLIC/120 ML Bottle TOPICAL SCH (05:45)
[2018-03-02] MEDS ORDERED: Chlorhexidine Gluconate 2% 1 Pack (2 Cloths) TOPICAL SCH (05:45)
[2018-03-02] MEDS ORDERED: Metoprolol Tartrate 25 MG Tablet PO SCH (05:45)
[2018-03-02] MEDS ORDERED: Vancomycin Inj 1,000 MG in Sodium Chlor 0.9% Inj 250 ML IV.SIG SCH (06:00)
[2018-03-02] MEDS ORDERED: ceFAZolin 2 GM Premix Inj 2 GM/50 ML PIGGYBACK IV.SIG SCH (06:00)
[2018-03-02] MEDS ORDERED: Sodium Chlor 0.9% Inj 500 ML IV.SIG SCH (06:00)
[2018-03-02] MEDS ORDERED: Ketamine Inj 50 MG/5 ML Syringe IV.PUSH ONE (06:39)
[2018-03-02] MEDS ORDERED: Propofol Inj 500 MG/50 ML Vial ONE (06:52)
[2018-03-02] MEDS ORDERED: Hydrocortisone Sod Succinate 100 MG Vial ONE (07:20)
[2018-03-02] MEDS ORDERED: MethylPREDNISolone Sod Succinate Inj 40 MG/ML Vial ONE (07:20)
[2018-03-02] MEDS ORDERED: Morphine Inj 4 MG/ML Vial IV.PUSH PRN (09:35)
[2018-03-02] MEDS ORDERED: Bisacodyl 10 MG Supp RECTAL PRN (09:35)
[2018-03-02] MEDS ORDERED: Temazepam 15 MG Capsule PO PRN (09:35)
--- NOTE | 2018-03-02 09:44 | P.OP ---
- Preoperative Diagnosis (1) Cervical radiculopathy Preoperative Diagnosis: Status post anterior cervical fusion C3-4, C4-5, C5-6. Cervical radiculopathy, bilateral. Cervical spinal stenosis. Cervical myelopathy Postoperative Diagnosis: Same Date of procedure: 03/02/18 Procedure: Posterior cervical fusion C3-4, C4-5, C5-6. Placement of segmental spinal instrumentation C3-C6. Placement of intra-facet cages with fixation C3-4, C4-5, C5-6, bilateral. Bone grafting of the lumbar spine with left posterior iliac crest bone graft Anesthesia: GETA Surgeon: Duarte Valdovinos MD Pre Assembly Wirer: LEYDA Cosby Operation and Findings: EBL: 50 cc INDICATIONS: This patient is a 77-year-old white male with significant neck and arm pain and evidence of cervical spinal stenosis. She is approximately 2 weeks status post ACDF at C3-4, C4-5 and C5-6. He now presents for staged posterior cervical fusion across the same levels with fixation NOTE: Jess Cosby PA-C was present for the entire surgical procedure as my sampler first. In my medical opinion her skill and care was necessary for proper management of this patient PROCEDURE: The patient was brought the operating room and anesthetized in the supine position. The patient was positioned prone on a Cecilio table. The arms were placed out along the side and taping was utilized to ensure adequate visualization. AP and lateral radiographic images were used identifying the proper level and allowing excellent exposure for purpose of the cervical fusion. A timeout was done and antibiotics were given within a routine time window. A small incision was made over the left iliac crest bone graft. A series of cores of bone graft were harvested with a special percutaneous device. The bone graft was taken to the back table to be mixed with stem cell bone graft for the later part of the case Using AP and lateral radiographs, skin markings were made. On the right side and 18-gauge spinal needle was placed down to the proper level. The left side a separate incision was made and we used the LonoCloudRAX system. Exposure was afforded down to the proper level. Under visualization, a chisel was placed down to the C5-6 level. This was confirmed under radiographs to be in proper position. Exposure was satisfactory. This is placed down into the facet joint at that level. A decorticating device was utilized decorticating the bone of the facet above and below. A retractor was placed down over the access chisel allowing exposure to the joint and exposure to the articular cartilage. A drilling system was utilized removing cartilage and bone this region followed by a rasp. On the back table demineralized bone matrix was mixed with Nucel stem cells and a autogenous bone graft. A combination of both these were then paced placed into proper cages. The cages were impacted into the proper position and checked again under AP and lateral fluoroscopic images. A transfixation screw was placed into the cage having excellent fixation into the facet joint of the level above. The back side of the cage was filled with additional bone graft which was tamped into position. The retractor was removed. On the right side a separate incision was made. Using the likewise sequence of access to the same level, an incision was made allowing visualization for placement of an access chisel which was placed into the joint followed by decortication with excellent visualization. A final retractor was positioned holding this while we were able to drill and use the rasp. The joint was prepared and we created a space for the cage. The cage was filled with bone graft and impacted in proper position. A transfixation screw was fixated at that time and alignment was satisfactory. Additional bone graft placed along the posterior aspect of the cage and the facet joint and was tamped into position. At the C4-5 level, this was repeated in the likewise fashion. A decorticating device was utilized decorticating the bone of the facet above and below. A retractor was placed down over the access chisel allowing exposure to the joint and exposure to the articular cartilage. A drilling system was utilized removing cartilage and bone this region followed by a rasp. On the back table demineralized bone matrix was mixed with Nucel stem cells and a autogenous bone graft. A combination of both these were then paced placed into proper cages. The cages were impacted into the proper position and checked again under AP and lateral fluoroscopic images. A transfixation screw was placed into the cage having excellent fixation into the facet joint of the level above. The back side of the cage was filled with additional bone graft which was tamped into position. The retractor was removed. On the right side this was repeated in the likewise fashion. Using the likewise sequence of access to the same level. An access chisel was placed into the joint followed by decortication with excellent visualization. A final retractor was positioned holding this while we were able to drill and use the rasp. The joint was prepared and we created a space for the cage. The cage was filled with bone graft and impacted in proper position. A transfixation screw was fixated at that time and alignment was satisfactory. Additional bone graft placed along the posterior aspect of the cage and the facet joint and was tamped into position. At the C3-4 level, this was repeated in the likewise fashion. A decorticating device was utilized decorticating the bone of the facet above and below. A retractor was placed down over the access chisel allowing exposure to the joint and exposure to the articular cartilage. A drilling system was utilized removing cartilage and bone this region followed by a rasp. On the back table demineralized bone matrix was mixed with Nucel stem cells and a autogenous bone graft. A combination of both these were then paced placed into proper cages. The cages were impacted into the proper position and checked again under AP and lateral fluoroscopic images. A transfixation screw was placed into the cage having excellent fixation into the facet joint of the level above. The back side of the cage was filled with additional bone graft which was tamped into position. The retractor was removed. On the right side this was repeated in the likewise fashion. Using the likewise sequence of access to the same level. An access chisel was placed into the joint followed by decortication with excellent visualization. A final retractor was positioned holding this while we were able to drill and use the rasp. The joint was prepared and we created a space for the cage. The cage was filled with bone graft and impacted in proper position. A transfixation screw was fixated at that time and alignment was satisfactory. Additional bone graft placed along the posterior aspect of the cage and the facet joint and was tamped into position. Intraoperative x-rays in AP and lateral plane showed excellent positioning and stabilization . The wound was irrigated copiously. Hemostasis was controlled. The fascia was closed with interrupted Vicryl suture skin and subcutaneous tissue with 3-0 Vicryl suture followed by Dermabond. The sponge count needle counts and sponge counts were all correct. The patient tolerated the procedure well as taken to the recovery room in satisfactory condition. FINDINGS: There was evidence of severe facet hypertrophy with degenerative changes. The most unstable level was the C3-4 level. Final fixation appear to be very satisfactory. There was no complication appreciated
[2018-03-02] MEDS ORDERED: Post-op Orders (for Pharmacy) OTHER STA (09:52)
--- NOTE | 2018-03-02 09:56 | P.OP ---
- Preoperative Diagnosis (1) Cervical radiculopathy Preoperative Diagnosis: Cervical spinal stenosis C3-4, C4-5, C5-6. Bilateral cervical radiculopathy. Cervical myelopathy. Degenerative disc the cervical spine. Cervical instability Postoperative Diagnosis: Same Date of procedure: 02/09/18 Procedure: Anterior cervical discectomy decompression and bilateral foraminotomies C3-4. Anterior cervical discectomy decompression and bilateral foraminotomies, C4-5. Anterior cervical discectomy decompression and bilateral foraminotomies C5-6. Left anterior iliac crest bone graft Anesthesia: GETA Surgeon: Duarte Valdovinos MD Online Advertising Manager: LEYDA Cosby Operation and Findings: EBL: 100 cc INDICATIONS: This patient is a 77-year-old white male who is developing bilateral hand weakness with gait disturbance and evidence of a high-grade cervical stenosis across the above levels. She has instability especially at C3 -4. He now presents for surgical treatment. We are anticipating delayed posterior cervical fusion across the same levels approximately 2 weeks after the anterior surgery. NOTE: Jess Cosby PA-C was present for the entire surgical procedure as my care management assistant. In my medical opinion her skill and care was necessary for proper management of this patient PROCEDURE: The patient was brought to the operating room and anesthetized in the supine position. This patient was positioned supine on the radiolucent table. All pressure points were protected in the anterior cervical spine and iliac crest was scrubbed with alcohol followed by Hibiclens followed by ChloraPrep. A timeout was done and antibiotics were given within 1 hour time window. Lateral radiographic images were used identifying the proper level. A right anterior incision was made in line with skin creases. The platysma was opened in line with the incision. Deep dissection continued in the interval between the carotid sheath and the esophagus. The longus-coli muscles were lifted on both sides and retractors were positioned allowing good exposure. Lateral radiographic images were used to identify the proper level. Andrews style interosseous pins were placed at C3 and C4 allowing exposure to that level. The microscope was rolled into the field. A total discectomy was accomplished and posterior osteophytes were removed. The posterior longitudinal ligament and annulus was taken down. Bilateral foraminotomies were accomplished. The endplates were squared up anticipating later bone grafting. A blunt probe could be placed out each foramen without evidence of nerve root compromise. The C3 pin was placed down to C5. An anterior exposure was accomplished. We performed a total discectomy with excision of the posterior annulus and posterior longitudinal ligament. Bilateral foraminotomies were accomplished. Osteophytes were removed. The endplates were squared up anticipating later bone grafting. A blunt probe could be placed out each foramen without evidence of nerve root compromise. The C4 pin was placed down to C6. An anterior exposure was accomplished. We performed a total discectomy with excision of the posterior annulus and posterior longitudinal ligament. Bilateral foraminotomies were accomplished. Osteophytes were removed. The endplates were squared up anticipating later bone grafting. A blunt probe could be placed out each foramen without evidence of nerve root compromise. The left iliac crest was approached. A small stab incision was made allowing percutaneous access to the anterior iliac crest. Multiple cores of cancellous bone were harvested and taken to the back table to be used for later bone grafting. The wound was irrigated anesthetized and closed with 4-0 Vicryl followed by Dermabond. The case was turned over to Dr. John Valdovinos for fusion and instrumentation per his dictation. FINDINGS: There was a high-grade stenosis at all 3 levels. The worst level stenosis was the C4-5 level. There was no complication that was appreciated. NOTE: This surgery was performed in 2 parts. The first part was the neurosurgical decompression performed under the variable power stereo microscope by the undersigned in addition to the bone graft. The second portion of the surgery will be performed by the orthopedic spine component by co -surgeon, Dr. John Valdovinos for the anterior fusion with interbody cage and anterior plate. The skill of 2 surgeons was necessary to perform distinct separate procedural services as dictated above and dictated in the following operative note by Dr. John Valdovinos.
[2018-03-02] MEDS ORDERED: fentaNYL Citrate Inj 100 MCG/2 ML Ampul ONE (10:01)
--- NOTE | 2018-03-02 10:04 | XR ---
EXAM DATE: 03/02/2018 9:54 AM EDT AGE/SEX: 77 years / Male INDICATIONS: Post-op posterior cervical fusion C3-C4, C4-C5, C5-C6. CLINICAL DATA: This is the patient's initial encounter. Patient reports that signs and symptoms have been present for 1 day and indicates a pain score of Nonresponsive. MEDICAL/SURGICAL HISTORY: Non-responsive. Fusion, cervical. [place] [facility] [place] [facility], 02/09/2018. . FINDINGS: Status post anterior cervical fusion from C3 through C6. There is good alignment of the cervical spin e and fusion. The hardware is grossly intact. CONCLUSION: Good position and alignment on this postoperative study. Electronically signed by: Freddy Joyner MD 03/02/2018 10:02 AM EDT
[2018-03-02] MEDS ORDERED: *morphine SULFATE 4 MG/ML PERIprocedure ONLY ONE ×3 (10:37→10:56)
[2018-03-02] MEDS ORDERED: Lidocaine PF 1% Inj 5 ML Syringe INFILTRATN ONE (12:08)
[2018-03-02] MEDS ORDERED: Phenylephrine/NS 1000 MCG/10ML Syringe IV.PUSH ONE (12:08)
[2018-03-02] MEDS ORDERED: Neostigmine Inj 5 MG/5 ML Syringe IV.PUSH ONE (12:08)
[2018-03-02] MEDS ORDERED: Glycopyrrolate Inj 1 MG/5 ML Syringe IV.PUSH ONE (12:08)
[2018-03-02] MEDS: Senna/Docusate Sodium 8.6/50 MG Tablet PO SCH (21:28)
[2018-03-02] MEDS: Pantoprazole Sodium 20 MG DR Tablet PO SCH (21:28)
[2018-03-02] MEDS: Multivitamin/Minerals Therapeutic Tablet PO SCH (21:28)
[2018-03-02] MEDS: Carvedilol 6.25 MG Tablet PO SCH (21:33)
--- NOTE | 2018-03-03 08:02 | P.PNOP ---
Subjective Interval history: Doing well. Arms 'feel better'. No new complaints or concerns. Posterior neck aching and cramping. ready for d/c home. Physical Exam Vital signs: Vital Signs 03/02/18 09:56 03/02/18 10:00 03/02/18 10:15 Temperature 96 F L Pulse Rate 80 76 75 Respiratory Rate 17 17 16 Blood Pressure 159/70 H 164/82 H 171/77 H Pulse Oximetry 100 100 99 03/02/18 10:30 03/02/18 10:45 03/02/18 11:00 Temperature Pulse Rate 75 74 74 Respiratory Rate 13 16 18 Blood Pressure 170/73 H 174/80 H 179/76 H Pulse Oximetry 100 99 100 03/02/18 12:00 03/02/18 13:00 03/02/18 13:40 Temperature 98 F Pulse Rate 75 79 79 Respiratory Rate 18 14 20 Blood Pressure 166/77 H 141/65 H 141/67 H Pulse Oximetry 94 L 98 97 03/02/18 16:00 03/02/18 20:00 03/02/18 21:26 Temperature 97.3 F L 97.5 F L Pulse Rate 92 H 90 Respiratory Rate 18 17 18 Blood Pressure 160/75 H 146/88 H Pulse Oximetry 93 L 95 03/03/18 00:00 03/03/18 04:00 Temperature 98.4 F 97.8 F Pulse Rate 102 H 98 H Respiratory Rate 18 17 Blood Pressure 147/67 H 134/64 Pulse Oximetry 96 93 L Intake & Output 03/02/18 03/03/18 03/03/18 18:59 06:59 18:59 Intake Total 5444 / 5444 1000 / 1000 Output Total 280 / 280 425 / 425 Balance 5164 / 5164 575 / 575 Weight 80.2 kg 80.5 kg Intake: IV 1644 / 1644 1000 / 1000 LR 1000 mL Inj 1,000 ML @ 80 244 / 244 800 / 800 mls/hr IV.CONT .[id number] ERIC Rx# :[id number] LR 1000 mL Inj 1,000 ML @ 30 1000 / 1000 mls/hr IV.SIG .Q24H ERIC Rx#: [id number] Vancomycin Inj 1,000 MG In NS 250 / 250 Inj 250 ML @ 250 mls/hr IV.SIG EDIPHONE OPERATOR ERIC Rx#:[id number] Ancef 2 GM Premix Inj 2 gm In 50 / 50 50 ml @ 100 mls/hr IV.SIG EDIPHONE OPERATOR [facility] Rx#:[id number] Ancef Inj 1,000 MG In NS Inj 100 / 100 200 / 200 100 ML @ 200 mls/hr IV.SIG Q6H [facility] Rx#:[id number] Oral 200 / 200 Anesthesia Amount 3600 / 3600 Output: Urine 250 / 250 425 / 425 Estimated Blood Loss 30 Other: Date of Last Bowel Movement 03/01/18 03/01/18 Narrative: Sitting up in bed NAD AAOx3 C/s Posterior dressings c/d/i, no new drainage, mild spasm, some warmth, no erythema +motor material dispatcher intact, +sens, Neg homans bilat - Constitutional no acute distress Results - Imaging Impressions Cervical Spine X-Ray 03/02/18 00:00 CONCLUSION: Good position and alignment on this postoperative study. - Procedures Posterior cervical fusion C3-C6, bone graft Assessment and Plan - Ortho Post Op Day # 1 - Assessment and Plan pod#1 PCF C3-C6, bone graft Doing well. Arms improved. Ok to d/c home today. Continue cervical collar time checker for 6-8 weeks. Daily dressing changes beginning pod#2. Ice posterior neck bid for 7 days. PO pain meds as needed. F/U in 2 weeks.
--- NOTE | 2018-03-03 08:04 | P.DS ---
Date of admission: 03/02/18 05:19 Primary care physician: [facility] Attending physician on discharge: Duarte Valdovinos Anticipated date of discharge: 03/03/18 DS: Medications - Discharge Medications Prescriptions: hydrocodone-acetaminophen 1 tab PO Q4H PRN #42 tab PRN Reason: Acute Pain DS: Summary Hospital Course: Surgical treatment was performed on the day of admission without complication. The patient recovered well in PACU and was transferred to the orthopedic floor. IV and oral medications were supplied. The patient was compliant with physical therapy and all precautions. After ___ days she was found to be stable and discharged to a ____. She was encouraged to continue physical therapy, to elevate the operative limb and ice it 2-3 times daily, and to pursue a high fiber diet. She was given prescriptions of [place] 7.5mg and ASA 81mg twice daily. - Time Spent with Patient Total time spent providing and/or coordinating discharge services: Greater than 30 minutes - Quality: VTE Deep Vein Thrombosis/Pulmonary Embolism Present on Admission: No Exam Vital signs: Vital Signs 03/02/18 09:56 03/02/18 10:00 03/02/18 10:15 Temperature 96 F L Pulse Rate 80 76 75 Respiratory Rate 17 17 16 Blood Pressure 159/70 H 164/82 H 171/77 H Pulse Oximetry 100 100 99 03/02/18 10:30 03/02/18 10:45 03/02/18 11:00 Temperature Pulse Rate 75 74 74 Respiratory Rate 13 16 18 Blood Pressure 170/73 H 174/80 H 179/76 H Pulse Oximetry 100 99 100 03/02/18 12:00 03/02/18 13:00 03/02/18 13:40 Temperature 98 F Pulse Rate 75 79 79 Respiratory Rate 18 14 20 Blood Pressure 166/77 H 141/65 H 141/67 H Pulse Oximetry 94 L 98 97 03/02/18 16:00 03/02/18 20:00 03/02/18 21:26 Temperature 97.3 F L 97.5 F L Pulse Rate 92 H 90 Respiratory Rate 18 17 18 Blood Pressure 160/75 H 146/88 H Pulse Oximetry 93 L 95 03/03/18 00:00 03/03/18 04:00 Temperature 98.4 F 97.8 F Pulse Rate 102 H 98 H Respiratory Rate 18 17 Blood Pressure 147/67 H 134/64 Pulse Oximetry 96 93 L Intake & Output 03/02/18 03/03/18 03/03/18 18:59 06:59 18:59 Intake Total 5444 / 5444 1000 / 1000 Output Total 280 / 280 425 / 425 Balance 5164 / 5164 575 / 575 Weight 80.2 kg 80.5 kg Intake: IV 1644 / 1644 1000 / 1000 LR 1000 mL Inj 1,000 ML @ 80 244 / 244 800 / 800 mls/hr IV.CONT .[id number] ERIC Rx# :[id number] LR 1000 mL Inj 1,000 ML @ 30 1000 / 1000 mls/hr IV.SIG .Q24H ERIC Rx#: [id number] Vancomycin Inj 1,000 MG In NS 250 / 250 Inj 250 ML @ 250 mls/hr IV.SIG RN [facility] ERIC Rx#:[id number] Ancef 2 GM Premix Inj 2 gm In 50 / 50 50 ml @ 100 mls/hr IV.SIG RN [facility] ERIC Rx#:[id number] Ancef Inj 1,000 MG In NS Inj 100 / 100 200 / 200 100 ML @ 200 mls/hr IV.SIG Q6H ERIC Rx#:[id number] Oral 200 / 200 Anesthesia Amount 3600 / 3600 Output: Urine 250 / 250 425 / 425 Estimated Blood Loss Other: Date of Last Bowel Movement 03/01/18 03/01/18 03/01/18 Results Procedures completed during hospitalization: Posterior cervical fusion C3-C6, bone graft - Impressions ITS Impressions Cervical Spine X-Ray 03/02/18 00:00 CONCLUSION: Good position and alignment on this postoperative study. Discharge Plan - Discharge Disposition Patient Disposition: 01 Discharge Home - Discharge Condition Condition: Good - Discharge Order Discharge Orders: Discharge Order (Routine); Ordered 03/03/18 Ordered By: Duarte Valdovinos - Discharge Details Anticipated Discharge Date: 03/03/18 - Physicians Team Primary Care Provider: [facility],Physician 's Attending Provider: Duarte Valdovinos - Rxs /Orders / Referrals /Forms Prescriptions: New hydrocodone-acetaminophen 7.5-325 mg Tablet 1 tab PO Q4H PRN (Reason: Acute Pain) Qty: 42 RF: 0 Continue aspirin [Aspirin Low Dose] 81 mg Tablet,Delayed Release (Dr/Ec) 81 mg PO DAILY calcium carbonate-vitamin D3 [Calcium 600 + D(3)] 600 mg(1,500mg) -400 unit Tablet 1 tab PO DAILY carvedilol 6.25 mg Tablet 6.25 mg PO BID etanercept [Enbrel] 25 mg (1 mL) Recon Soln 25 mg Sub-Q WEEKLY ferrous sulfate 325 mg (65 mg iron) Tablet 325 mg PO BID furosemide 20 mg Tablet 20 mg PO 3XW hydrocodone-acetaminophen 7.5-325 mg Tablet 1 tab PO Q4H PRN (Reason: Pain) levothyroxine 25 mcg Tablet 25 mcg PO DAILY [id number]-FA-vit K [Adults Multivitamin] 18 mg iron-400 mcg-25 mcg Tablet 1 tab PO DAILY omeprazole 20 mg Capsule,Delayed Release(Dr/Ec) 20 mg PO BID rosuvastatin 40 mg Tablet 40 mg PO HS Referrals: [facility],Physician 's [Primary Care Provider] - See Instructions - Discharge Instructions Patient Printed Instructions: Hydrocodone/Acetaminophen (By mouth), Laminectomy (DC), Fall Prevention (DC), [place] J Collar (DC) Additional Instructions: IT HAS BEEN OUR PLEASURE TAKING CARE OF YOU! GOOD LUCK WITH YOUR RECOVERY! WE HOPE THAT YOU HAVE HAD AN EXCEPTIONAL STAY HERE AT [facility]! - Post Discharge Care Plan Care Plan Goals: Your Health Problems: Cervical spinal stenosis Goals to Promote Your Health: * To prevent worsening of your condition * To maintain your health at the optimal level Directions to Meet Your Goals: * Take your medications as prescribed * Follow your dietary instruction. A soft diet is recommended for 1-2 days after surgery. * Follow activity as directed. Continue your cervical brace time recorder for 7-8 weeks. * Keep your appointments as scheduled * Take your immunizations and boosters as scheduled * If your symptoms worsen call your PCP * If no PCP go to Urgent Care or Emergency Room Smoking is dangerous to your health. Avoid second hand smoke. You may reach the 24-hour crisis hotline for domestic abuse at .
[2018-03-03] MEDS: Carvedilol 6.25 MG Tablet PO SCH (08:53)
[2018-03-03] MEDS: Multivitamin/Minerals Therapeutic Tablet PO SCH (08:53)
[2018-03-03] MEDS: Pantoprazole Sodium 20 MG DR Tablet PO SCH (08:53)
[2018-03-03] MEDS: Senna/Docusate Sodium 8.6/50 MG Tablet PO SCH (08:53)
[2018-03-03 09:40] VITALS: BP 140/72; PULSE 94; RESP 18; TEMP 98.2; O2SAT 94
[2018-03-06] MEDS ORDERED: Furosemide 20 MG Tablet PO SCH (09:00)
== END 2018-03-03 12:09 | disposition home or self-care (01) ==
LOC: HSDI 05:19 → N06 13:55
PROVIDERS: ADMIT Orthopaedic Surgery Orthopaedic Surgery of the Spine; ATTEND Orthopaedic Surgery Orthopaedic Surgery of the Spine